=== PATIENT | female | born 1955 | race Caucasian/White ===

== ENCOUNTER 2021-10-03 08:00 | Outpatient (CLI) | payer OTHER | END 2021-10-03 08:30 | disposition home or self-care (01) | LOC: PPH VACUNA 08:00 | PROVIDERS: ATTEND Emergency Medicine Pediatric Emergency Medicine | DX: Z23 Encounter for immunization (principal) ==

== ENCOUNTER 2022-08-22 14:00 | Outpatient (CLI) | payer OTHER | END 2022-08-22 14:10 | disposition home or self-care (01) | LOC: PPH VACUNA 14:00 | PROVIDERS: ATTEND Emergency Medicine Pediatric Emergency Medicine | DX: Z23 Encounter for immunization (principal) ==

== ENCOUNTER → 2024-01-25 | Emergency (ER) | payer OTHER ==
[~2024-01-25] VITALS: Ht 152.4 cm; Wt 76.2 kg
== END | disposition home or self-care (01) ==
LOC: ER 17:09
DX: S61.022A Laceration with foreign body of left thumb without damage to nail, initial encounter (principal); W45.8XXA Other foreign body or object entering through skin, initial encounter; Y93.89 Activity, other specified; Y92.018 Other place in single-family (private) house as the place of occurrence of the external cause

== ENCOUNTER 2024-02-06 08:48 | Emergency (ER) | payer OTHER ==
[~2024-02-06] VITALS: Ht 162.6 cm; Wt 76.2 kg
[2024-02-06] MEDS ORDERED: SYNTHROID112 MCG PO (09:03)
[2024-02-06] MEDS ORDERED: BACITRAYCIN PLU28 GM TP (09:50)
[2024-02-06] MEDS ORDERED: BACITRACIN1 EACH TOP (10:16)
== END 2024-02-06 10:36 | disposition home or self-care (01) ==
LOC: ER 08:48
DX: Z48.02 Encounter for removal of sutures (principal); T81.41XA Infection following a procedure, superficial incisional surgical site, initial encounter; E03.9 Hypothyroidism, unspecified; L02.512 Cutaneous abscess of left hand